=== PATIENT | female | born 1965 | race Caucasian/White ===

== ENCOUNTER 2018-12-12 12:48 | Outpatient (CLI) | payer OTHER | END 2018-12-12 12:49 | disposition home or self-care (01) | LOC: C.LAB 12:48 | DX: R73.9 Hyperglycemia, unspecified (principal) ==

== ENCOUNTER 2019-01-10 08:04 | Outpatient (CLI) | payer OTHER | END 2019-01-10 08:05 | disposition home or self-care (01) | LOC: C.USIC 08:04 ==

== ENCOUNTER 2019-01-16 12:54 | Outpatient (CLI) | payer OTHER | END 2019-01-16 12:55 | disposition home or self-care (01) | LOC: C.MAMMO 12:54 | DX: Z12.31 Encounter for screening mammogram for malignant neoplasm of breast (principal) ==